=== PATIENT | male | born 1965 | race African-American/Black ===

== ENCOUNTER 2019-10-31 12:45 | Inpatient (IN) ==
[2019-10-31] MEDS ORDERED: 0.9 % Sodium Chloride 1,000 ML IVC ONE (13:09)
[2019-10-31] MEDS ORDERED: Clindamycin 600 MG/50 ML 600 MG/50 ML IV.SOLN IVPB STA (13:09)
[2019-10-31 13:39] LABS: Basophils % 0.3 %; Hematocrit 36.2 % (37.5-50.1); Hemoglobin 11.6 g/dL (12.9-16.9); Immature Granulocytes % 0.5 % (0-4); Lymphocytes # 0.6 K/mcL (0.6-4.6); Lymphocytes % 7.5 %; Mean Corpuscular Hemoglobin 30.2 pg (28.0-33.3); Mean Corpuscular Volume 94.3 fL (83.0-100.0); Mean Platelet Volume 8.7 fL (9.4-12.4); Monocytes # 1.1 K/mcL (0.0-1.3); Monocytes % 14.2 %; Neutrophils # 5.9 K/mcL (1.6-8.9); Platelet Count 301 K/mcL (140-400); Red Blood Count 3.84 M/mcL (4.19-5.50); Red Cell Distribution Width 14.8 % (11.5-14.5); Segmented Neutrophils % 77.5 %; White Blood Count 7.6 K/mcL (4.3-11.1)
[2019-10-31 13:55] LABS: Alanine Aminotransferase 24 Units/L (7-52); Albumin 3.8 g/dL (3.5-5.7); Albumin/Globulin Ratio 1.1 (1.1-2.2); Alkaline Phosphatase 72 Units/L (34-104); Aspartate Amino Transferase 20 Units/L (13-39); BUN/Creatinine Ratio 16 (6-26); Bilirubin,Total 0.3 mg/dL (0.3-1.0); Blood Urea Nitrogen 15 mg/dL (6-20); C-Reactive Protein 208 mg/L (Less than 10); Calcium 9.6 mg/dL (8.6-10.3); Carbon Dioxide 28 mEq/L (23-29); Chloride 96 mEq/L (98-107); Globulin 3.6 g/dL (2.4-3.5); Glucose 95 mg/dL (70-105); Osmolality,Calculated 277 (280-300); Potassium 4.3 mEq/L (3.5-5.1); Sodium 133 mEq/L (136-145); Total Protein 7.4 g/dL (6.4-8.9); eGFR For African Americans > 60 (> 60); eGFR For Non-African Americans > 60 (> 60)
[2019-10-31] MEDS ORDERED: Naloxone 0.4 MG/ML INJ IVP PRN (15:03)
[2019-10-31] MEDS ORDERED: *HR* Promethazine 25 MG/ML VIAL IVP PRN (15:03)
[2019-10-31] MEDS ORDERED: Isovue-370 500 ML BOTTLE IVP ONE (15:10)
[2019-10-31] MEDS: *HR* OxyCODONE Immed Rel 5 MG TABLET PO PRN ×2 (18:00→22:07)
[2019-10-31] MEDS: Clindamycin 600 MG/50 ML 600 MG/50 ML IV.SOLN IVPB SCH (22:07)
[2019-11-01] MEDS ORDERED: *HR* Enoxaparin 40 MG/0.4 ML SYRINGE SQ SCH (06:00)
[2019-11-01] MEDS: *HR* OxyCODONE Immed Rel 5 MG TABLET PO PRN ×5 (06:23→22:00)
[2019-11-01 07:13] LABS: Hematocrit 34.9 % (37.5-50.1); Hemoglobin 11.3 g/dL (12.9-16.9); Mean Corpuscular HGB Conc 32.4 g/dL (31.6-35.5); Mean Corpuscular Hemoglobin 30.4 pg (28.0-33.3); Mean Corpuscular Volume 93.8 fL (83.0-100.0); Mean Platelet Volume 8.6 fL (9.4-12.4); Platelet Count 286 K/mcL (140-400); Red Blood Count 3.72 M/mcL (4.19-5.50); Red Cell Distribution Width 14.9 % (11.5-14.5); White Blood Count 5.5 K/mcL (4.3-11.1)
[2019-11-01 07:29] LABS: BUN/Creatinine Ratio 15 (6-26); Blood Urea Nitrogen 12 mg/dL (6-20); Calcium 8.8 mg/dL (8.6-10.3); Carbon Dioxide 27 mEq/L (23-29); Chloride 102 mEq/L (98-107); Glucose 98 mg/dL (70-105); Osmolality,Calculated 280 (280-300); Potassium 4.4 mEq/L (3.5-5.1); Sodium 135 mEq/L (136-145); eGFR For African Americans > 60 (> 60); eGFR For Non-African Americans > 60 (> 60)
[2019-11-01] MEDS: Clindamycin 600 MG/50 ML 600 MG/50 ML IV.SOLN IVPB SCH ×2 (08:43→22:46)
[2019-11-01] MEDS ORDERED: *HR* OxyCODONE Immed Rel 5 MG TABLET PO PRN ×2 (14:19→16:34)
[2019-11-01] MEDS ORDERED: Ondansetron 4 MG/2 ML VIAL IVP ONE ×2 (14:19→16:34)
[2019-11-01] MEDS ORDERED: Acetaminophen IV 1,000 MG/100 ML BAG ONE (14:22)
[2019-11-01] MEDS ORDERED: Famotidine 20 MG/2 ML VIAL ONE (14:22)
[2019-11-01] MEDS ORDERED: *HR* Midazolam HCl 2 MG/2 ML VIAL ONE ×2 (14:30→15:04)
[2019-11-01] MEDS ORDERED: *HR* Propofol 200 MG/20 ML VIAL IVP ONE (14:30)
[2019-11-01] MEDS ORDERED: *HR* FentaNYL (PF) 100 MCG/2 ML VIAL ONE ×2 (14:30→15:16)
[2019-11-01] MEDS ORDERED: Lidocaine -MPF 2% 2 ML VIAL ONE ×2 (14:31→15:00)
[2019-11-01] MEDS ORDERED: Dexamethasone 4 MG/ML VIAL ONE (14:31)
[2019-11-01] MEDS ORDERED: Ondansetron 4 MG/2 ML VIAL ONE (14:31)
[2019-11-01] MEDS ORDERED: *HR* Succinylcholine 200 MG/10 ML VIAL IVP ONE (14:58)
[2019-11-01] MEDS ORDERED: *HR* HYDROMORPHONE 2 MG/ML VIAL ONE (15:34)
[2019-11-01] MEDS ORDERED: Naloxone 0.4 MG/ML INJ IVP PRN (16:34)
[2019-11-01] MEDS ORDERED: *HR* Promethazine 25 MG/ML VIAL IVP PRN (16:34)
[2019-11-01] MEDS ORDERED: Mirtazapine 15 MG TABLET PO SCH (21:00)
[2019-11-01] MEDS: Mirtazapine 15 MG TABLET PO SCH (21:55)
[2019-11-02] MEDS: Clindamycin 600 MG/50 ML 600 MG/50 ML IV.SOLN IVPB SCH ×3 (00:34→15:54)
[2019-11-02 01:45] LABS: Basophils % 0.3 %; Hematocrit 35.9 % (37.5-50.1); Hemoglobin 11.8 g/dL (12.9-16.9); Immature Granulocytes % 0.5 % (0-4); Lymphocytes # 0.4 K/mcL (0.6-4.6); Lymphocytes % 5.6 %; Mean Corpuscular HGB Conc 32.9 g/dL (31.6-35.5); Mean Corpuscular Hemoglobin 30.7 pg (28.0-33.3); Mean Corpuscular Volume 93.5 fL (83.0-100.0); Monocytes # 0.6 K/mcL (0.0-1.3); Monocytes % 9.8 %; Neutrophils # 5.2 K/mcL (1.6-8.9); Platelet Count 294 K/mcL (140-400); Red Blood Count 3.84 M/mcL (4.19-5.50); Red Cell Distribution Width 14.9 % (11.5-14.5); Segmented Neutrophils % 83.8 %; White Blood Count 6.2 K/mcL (4.3-11.1)
[2019-11-02 01:47] LABS: BUN/Creatinine Ratio 19 (6-26); Blood Urea Nitrogen 13 mg/dL (6-20); Calcium 9.3 mg/dL (8.6-10.3); Carbon Dioxide 26 mEq/L (23-29); Chloride 100 mEq/L (98-107); Glucose 131 mg/dL (70-105); Magnesium 2.2 mg/dL (1.6-2.6); Osmolality,Calculated 282 (280-300); Potassium 4.4 mEq/L (3.5-5.1); Sodium 135 mEq/L (136-145); eGFR For African Americans > 60 (> 60); eGFR For Non-African Americans > 60 (> 60)
[2019-11-02] MEDS: *HR* OxyCODONE Immed Rel 5 MG TABLET PO PRN ×5 (03:25→22:02)
[2019-11-02] MEDS: *HR* Enoxaparin 40 MG/0.4 ML SYRINGE SQ SCH (05:56)
[2019-11-02] MEDS ORDERED: Aminoglycoside Consult 1 EACH MC ONE (08:49)
[2019-11-02] MEDS: Vancomycin 1,250 MG/262.5 ML IV.SOLN IVPB SCH (15:55)
[2019-11-02] MEDS: Mirtazapine 15 MG TABLET PO SCH ×2 (21:20→21:27)
[2019-11-03] MEDS: Vancomycin 1,250 MG/262.5 ML IV.SOLN IVPB SCH (01:42)
[2019-11-03 01:43] LABS: Hematocrit 34.1 % (37.5-50.1); Hemoglobin 11.3 g/dL (12.9-16.9); Mean Corpuscular HGB Conc 33.1 g/dL (31.6-35.5); Mean Corpuscular Hemoglobin 31.8 pg (28.0-33.3); Mean Corpuscular Volume 96.1 fL (83.0-100.0); Mean Platelet Volume 8.5 fL (9.4-12.4); Platelet Count 279 K/mcL (140-400); Red Blood Count 3.55 M/mcL (4.19-5.50); Red Cell Distribution Width 15.1 % (11.5-14.5); White Blood Count 4.2 K/mcL (4.3-11.1)
[2019-11-03] MEDS: Clindamycin 600 MG/50 ML 600 MG/50 ML IV.SOLN IVPB SCH (01:43)
[2019-11-03 02:03] LABS: BUN/Creatinine Ratio 19 (6-26); Blood Urea Nitrogen 14 mg/dL (6-20); Carbon Dioxide 27 mEq/L (23-29); Chloride 105 mEq/L (98-107); Glucose 99 mg/dL (70-105); Osmolality,Calculated 289 (280-300); Potassium 4.3 mEq/L (3.5-5.1); Sodium 139 mEq/L (136-145); eGFR For African Americans > 60 (> 60); eGFR For Non-African Americans > 60 (> 60)
[2019-11-03] MEDS: *HR* OxyCODONE Immed Rel 5 MG TABLET PO PRN ×2 (02:20→06:30)
[2019-11-03] MEDS ORDERED: Acetaminophen 325 MG TABLET PO ONE (05:51)
[2019-11-03] MEDS: *HR* Enoxaparin 40 MG/0.4 ML SYRINGE SQ SCH (06:31)
[2019-11-03 07:01] VITALS: BP 111/74
== END 2019-11-03 08:50 | disposition home or self-care (01) | DRG 317 ==
LOC: 3ANU 12:45 → EMEROOARM 12:45 → SUATTDRO 14:35 → 3ANU 15:28
PROVIDERS: ADMIT Internal Medicine; ATTEND Internal Medicine